=== PATIENT | male | born 1955 | race Caucasian/White ===

== ENCOUNTER → 2024-02-10 08:05 | Outpatient (REF) | payer MEDICARE, BC, SELFPAY ==
[2024-02-10 09:22] LABS: % Basophils 0.3 % (0-2); % Eosinophils 0.1 % (0-6); % Immature Granulocytes 0.3 % (0-0.5); % Lymphocytes 26.5 % (20.5-51.1); % Monocytes 7.8 % (1.7-9.3); Absolute Monocytes 0.6 10^3/uL (0.1-0.6); Hematocrit 45.4 % (39.0-52.0); Hemoglobin 15.1 g/dL (13.0-18.0); Mean Corp Hgb Conc. 33.3 g/dL (33.0-37.0); Mean Corpuscular Hgb 31.9 pg (27.0-31.0); Mean Corpuscular Volume 95.8 fL (80.0-94.0); Mean Platelet Volume 10.9 fL (7.4-10.4); Nucleated Red Blood Cells % 0 % (-); Platelet Count 230 10^3/uL (130-400); Red Blood Cell Count 4.74 10^6/uL (4.70-6.10); Red Cell Dist. Width 14.2 % (11.5-14.5); White Blood Cell Count 7.6 10^3/uL (4.8-10.8)
[2024-02-10 09:55] LABS: ALT (SGPT) 27 U/L (0-50); AST (SGOT) 22 U/L (17-59); Albumin 4.8 g/dl (3.5-5.0); Alkaline Phosphatase 47 U/L (38-126); Blood Urea Nitrogen 25 mg/dl (9-20); Calcium 9.9 mg/dl (8.4-10.2); Carbon Dioxide 24 mmol/L (22-30); Chloride 104 mmol/L (98-107); Glucose 96 mg/dl (70-99); HDL Cholesterol 55 mg/dl; LDL Cholesterol, Calculated 90 mg/dl; Potassium 4.5 mmol/L (3.5-5.1); Sodium 139 mmol/L (135-145); Total Bilirubin 1.1 mg/dl (0.2-1.3); Total Cholesterol 169 mg/dl (50-199); Total Protein 7.5 g/dl (6.3-8.2); Triglyceride 124 mg/dl (10-149); Very Low Density Lipoprotein 24 mg/dl (0-30); eGFR > 60.00
[2024-02-10 10:18] LABS: PSA, Total - Screen 3.63 ng/ml (0.0-4.0)
== END ==
LOC: REG 08:05
PROVIDERS: ATTENDING PHYSICIAN Family Medicine
DX: I10 Essential (primary) hypertension (principal); E78.5 Hyperlipidemia, unspecified; I27.20 Pulmonary hypertension, unspecified; R97.20 Elevated prostate specific antigen [PSA]; Z86.711 Personal history of pulmonary embolism; N40.1 Benign prostatic hyperplasia with lower urinary tract symptoms; Z12.5 Encounter for screening for malignant neoplasm of prostate
CPT/HCPCS: 36415; 80053; 80061; 85025; G0103

== ENCOUNTER 2024-02-11 12:15 | Emergency (ER) | payer MEDICARE, BC, SELFPAY ==
[2024-02-11 12:34] VITALS: BP 150/88
[2024-02-11 13:03] LABS: % Basophils 0.3 % (0-2); % Eosinophils 0.2 % (0-6); % Immature Granulocytes 0.4 % (0-0.5); % Lymphocytes 17.1 % (20.5-51.1); % Monocytes 7.8 % (1.7-9.3); % Neutrophils 74.2 % (42.2-75.2); Absolute Lymphocytes 1.6 10^3/uL (1.2-3.4); Absolute Monocytes 0.7 10^3/uL (0.1-0.6); Absolute Neutrophils 6.8 10^3/uL (1.4-6.5); Hematocrit 43.6 % (39.0-52.0); Mean Corp Hgb Conc. 34.4 g/dL (33.0-37.0); Mean Corpuscular Hgb 32.4 pg (27.0-31.0); Mean Corpuscular Volume 94.2 fL (80.0-94.0); Mean Platelet Volume 10.6 fL (7.4-10.4); Nucleated Red Blood Cells % 0 % (-); Platelet Count 238 10^3/uL (130-400); Red Blood Cell Count 4.63 10^6/uL (4.70-6.10); Red Cell Dist. Width 14.2 % (11.5-14.5); White Blood Cell Count 9.2 10^3/uL (4.8-10.8)
[2024-02-11 13:16] LABS: ALT (SGPT) 28 U/L (0-50); AST (SGOT) 20 U/L (17-59); Albumin 4.6 g/dl (3.5-5.0); Alkaline Phosphatase 50 U/L (38-126); Blood Urea Nitrogen 25 mg/dl (9-20); Calcium 9.4 mg/dl (8.4-10.2); Carbon Dioxide 20 mmol/L (22-30); Chloride 109 mmol/L (98-107); Glucose 109 mg/dl (70-99); Potassium 3.9 mmol/L (3.5-5.1); Sodium 136 mmol/L (135-145); Total Bilirubin 0.7 mg/dl (0.2-1.3); Total Protein 7.4 g/dl (6.3-8.2); eGFR > 60.00
[2024-02-11 13:26] LABS: Troponin I < 0.012 ng/ml
[2024-02-11 14:16] VITALS: BP 136/72
--- NOTE | 2024-02-11 14:53 | ED.GENMED ---
History of Present Illness
General
Chief Complaint: Chest Pain
Source: patient
Exam Limitations: none
Time Seen by Provider: 02/11/24 14:21
Nursing documentation reviewed up to this point in time: agreed with
Travel History
Have you had any contact with someone who has COVID-19?: No
Do you have any symptoms of coronavirus? Fever > 100 degrees, chills, cough, shortness of breath, sore throat, loss of taste or smell, muscle aches, or headache?: No
History of Present Illness
History of Present Illness:
68-year-old male with previous history of PE currently on Eliquis anxiety presenting to the emergency department today with concerns of intermittent chest pain palpitations of the past few weeks also has had some intermittent shortness of breath
seems worse at night during the day is manageable. Denies similar symptoms in the past. Does have a risk lead has yet to see them for the symptoms. Denies nausea vomiting recent illness.
Past History
Past History
ED Past Medical History: HTN, Hypercholesterolemia and Other (History of pulmonary emboli)
ED Past Surgical History: Orthopedic and Other (Hernia repair)
Social History
Tobacco: Former smoker
Alcohol: Occasional
Drug: None
Personal:
Living: with family
Employment: Retired
Family History
Family History: Hypertension and CAD
Review of Systems
Review of Systems
Allergies reviewed?: Yes
All Other Systems: ROS reviewed and negative except as documented in HPI and ROS
Phy Exam
Physical Exam
Physical Exam:
GENERAL: Alert , in no apparent distress
EYE: pupils equal and reactive
NECK: Supple, no significant adenopathy.
ENT: o/p clr, mmm.
CARDIAC: Regular rate and rhythm .
LUNGS: Clear breath sounds bilaterally, no acute respiratory distress, no wheezes/rales/rhonchi
ABDOMEN: Soft, without focal tenderness, no r/g, no cvat
NEUROLOGICAL: Alert and oriented, no focal neuro deficits
SKIN: Warm and dry, skin intact.
MUSCULOSKELETAL: No edema, well perfused.
PSYCH: Normal and appropriate interaction.
Scores
Heart Score for Chest Pain Patients
STEMI patient?: No
History: Slightly or Non-Suspicious
ECG: Normal
Age: >/= 65 years
Risk Factors: >/= 3 Risk Factors or History of CAD
Troponin: </= Normal Limit
Heart Score for Chest Pain Patients: 4
Heart Score Risk: 20.3% MACE over next 6 weeks
Course
Orders/Labs/Results
Orders:
Orders
02/11/24 12:41
EKG [Electrocardiogram (*1)] Urgent
Reason for Study: Shortness of Breath
EKG- Treatment ONCE
02/11/24 12:53
CMP [Comprehensive Metabolic Panel] Urgent
Complete Blood Count/With Diff Urgent
Troponin I Urgent
02/11/24 14:22
Chest [CR Chest - 2 Views ] Urgent
Comment:
Reason For Exam: cp
Abnormal Lab Results
02/11/24
12:53
RBC 4.63 L 10^6/uL
(4.70-6.10)
MCV 94.2 H fL
(80.0-94.0)
MCH 32.4 H pg
(27.0-31.0)
MPV 10.6 H fL
(7.4-10.4)
Absolute Neuts (auto) 6.8 H 10^3/uL
(1.4-6.5)
Absolute Monos (auto) 0.7 H 10^3/uL
(0.1-0.6)
Lymphocytes % 17.1 L %
(20.5-51.1)
Chloride 109 H mmol/L
(98-107)
Carbon Dioxide 20 L mmol/L
(22-30)
BUN 25 H mg/dl
(9-20)
Glucose 109 H mg/dl
(70-99)
02/11/24 12:53
02/11/24 12:53
Vital Signs
Initial and Last Documented VS:
Initial Vital Signs
Temp Pulse Resp BP Pulse Ox
99.2 F 71 16 150/88 97
02/11/24 12:34 02/11/24 12:34 02/11/24 12:34 02/11/24 12:34 02/11/24 12:34
Last Documented Vital Signs
Temp Pulse Resp BP Pulse Ox
99.2 F 57 16 136/72 97
02/11/24 12:34 02/11/24 14:30 02/11/24 14:30 02/11/24 14:16 02/11/24 12:34
MDM/Problems Addressed
MDM/Problems Addressed:
68-year-old male presenting to the emergency department today with concerns of chest discomfort palpitations intermittently over the past 2 weeks denies significant symptoms at this time. Here vital signs are normal patient in no distress labs
obtained and normal EKG without signs of ischemia or arrhythmia. Potentially slightly dehydrated with elevated BUN to creatinine ratio otherwise troponin negative. Patient generally well-appearing no acute distress chest x-ray normal. Patient
appears stable for close outpatient follow-up with cardiology. Return precautions given.
*Critical Care Note
Total Time (30-74mins, 75-104mins- exclusive of procedures): Not Applicable
ED Attending Note
-
Portions of this chart may have been created with voice recognition software.� Occasional wrong word or��sound alike� substitutions may have occurred due to the inherent limitations of voice recognition software.
Discharge Plan
Departure
Patient Disposition: Home (Routine Discharge)
Date of Disposition: 02/11/24
Time of Disposition: 15:40
Patient with high blood pressure during this ER visit?: No
Condition: Good
Covid-19: Not Applicable
Discharge Problem:
Chest pain
Instructions: Chest Pain DCA Follow Up
Prescriptions:
No Action
rosuvastatin 10 MG tablet
10 mg PO QPM
Eliquis 5 MG tablet
5 mg PO BID
epinephrine [EpiPen] 0.3 MG/0.3/SYRINGE auto-injector
0.3 mg IM .STAT PRN (Reason: sob, swelling) Qty: 2 0RF
tamsulosin 0.4 MG capsule
0.4 mg PO DAILY
oxycodone-acetaminophen [Percocet] 5-325 mg tablet
1 tab PO Q6HPRN PRN (Reason: pain) Qty: 8 0RF
methylprednisolone [Medrol (Sam)] 4 mg tablets,dose pack
4 mg PO DIRECTED Qty: 21 0RF
lidocaine [Lidoderm] 5 % adhesive patch,medicated
1 patch topical DAILY Qty: 30 0RF
Referrals:
Dmitriy Villafana MD [Family Provider] -
Activity Restrictions/Additional Instructions:
You came to the emergency department today with concerns of chest discomfort and palpitations. He had a reassuring evaluation. Please follow closely with cardiology. Return to the emergency department for any worsening, new or concerning symptoms.
Interventions
Interventions:
*Risk Screen - Suicide Last Done: 02/11/24 12:34
*Neglect/Abuse Screening Last Done: 02/11/24 12:34
*ED COVID-19 Vaccine History Last Done: 02/11/24 12:34
Discharge Date and Time
Print Language: GRENADIAN
== END 2024-02-11 16:03 | disposition home or self-care (01) ==
LOC: EMR 12:15
PROVIDERS: Emergency Medicine; EMERGENCY PHYSICIAN Emergency Medicine; FAMILY PHYSICIAN Family Medicine
DX: R07.89 Other chest pain (principal); F41.9 Anxiety disorder, unspecified; I10 Essential (primary) hypertension; E78.00 Pure hypercholesterolemia, unspecified; I25.10 Atherosclerotic heart disease of native coronary artery without angina pectoris; Z79.01 Long term (current) use of anticoagulants; Z82.49 Family history of ischemic heart disease and other diseases of the circulatory system; Z86.711 Personal history of pulmonary embolism; Z87.891 Personal history of nicotine dependence
CPT/HCPCS: 99283; 71046; 80053; 84484; 85025; 93005

== ENCOUNTER 2024-02-18 06:08 | Day surgery (SDC) | payer MEDICARE, BC, SELFPAY ==
[2024-02-18] VITALS (11 sets, daily range): BP systolic 122–141; BP diastolic 69–82; BMI 29.7
[2024-02-18] MEDS: ASPIR LOW (ENTERIC COATED) 162 MG PO (07:17)
--- NOTE | 2024-02-18 08:52 | ITS.CL.CATH ---
[facility] - Catheterization
Cardiac Catheterization
Procedure Report:
LEFT HEART CATHETERIZATION
Date of Procedure: February 18, 2024
Referring: Dr. Karly Mullen
PROCEDURES:
1. Left heart catheterization with coronary and single-plane left ventriculography
INDICATION: Recurring chest pain
ACCESS: Right radial artery, 6 Telugu sheath
HEMODYNAMICS : (mmHg)
AO (s/d) : 115/75
LV (s/d) : 124/10
LVEDP : 24
CORONARY FINDINGS
DOMINANCE: Right
LEFT MAIN: Normal
LEFT ANTERIOR DESCENDING: The LAD arises normally from the left main and runs in the anterior interventricular groove. The mid LAD at the origin of the first diagonal branch has a 20% stenosis. The diagonal branch is a moderate size vessel and
arises from the proximal third of the LAD. The remainder of the LAD has only minor irregularities in the distal vessel reaches the apex but does not wrap completely around the apex
CIRCUMFLEX: The circumflex is a small caliber nondominant vessel. OM1 arises very proximally and is a small caliber vessel. The circumflex gives rise to a small OM 2 and terminal OM 3
RIGHT CORONARY ARTERY: The right coronary artery is a large-caliber dominant vessel that is widely patent. The PDA is large. The posterolateral branch is large
VENTRICULOGRAPHY: Left ventriculography was performed in an ANDERSON projection. The digital single-plane left ventricular ejection fraction is estimated at at 65%. Ventriculography was notable for initial catheter associated mitral regurgitation. As
the pigtail was advanced into the left ventricle the mitral regurgitation resolved. I do not believe there is significant mitral regurgitation present.
RADIATION SUMMARY: Fluoro Time (min): 3.2, Dose (mGy): 277.6, DAP (Gy.cm2) : 22.0
Closure Device: TR band
CONCLUSIONS
1. Nonobstructive coronary disease
2. Preserved left ventricular systolic function
RECOMMENDATIONS
1. Continued guideline directed medical therapy and risk modification
Copy to: Dr. Karly Mullen
== END 2024-02-18 12:00 | disposition home or self-care (01) ==
LOC: CATH 06:08
PROVIDERS: ATTENDING PHYSICIAN Internal Medicine Interventional Cardiology; FAMILY PHYSICIAN Family Medicine
DX: I25.10 Atherosclerotic heart disease of native coronary artery without angina pectoris (principal); R07.9 Chest pain, unspecified; I34.0 Nonrheumatic mitral (valve) insufficiency; I10 Essential (primary) hypertension; E78.00 Pure hypercholesterolemia, unspecified; Z79.01 Long term (current) use of anticoagulants; Z86.711 Personal history of pulmonary embolism
CPT/HCPCS: 93458; C1894; Q9967

== ENCOUNTER → 2024-08-11 06:26 | Day surgery (SDC) | payer MEDICARE, BC, SELFPAY | LOC: GI 06:26 | PROVIDERS: ATTENDING PHYSICIAN Surgery; FAMILY PHYSICIAN Family Medicine | DX: Z12.11 Encounter for screening for malignant neoplasm of colon (principal); K57.30 Diverticulosis of large intestine without perforation or abscess without bleeding; K64.8 Other hemorrhoids; D12.2 Benign neoplasm of ascending colon; D12.5 Benign neoplasm of sigmoid colon | CPT/HCPCS: 45385; 88305 ==

== ENCOUNTER → 2025-08-20 14:06 | Outpatient (REF) | payer MEDICARE, BC, SELFPAY ==
[2025-08-20 18:23] LABS: PSA, Total - Screen 5.03 ng/ml (0.0-4.0)
== END ==
LOC: REG 14:06
PROVIDERS: ATTENDING PHYSICIAN Specialist; FAMILY PHYSICIAN Family Medicine
DX: Z12.5 Encounter for screening for malignant neoplasm of prostate (principal)
CPT/HCPCS: 36415; G0103

== ENCOUNTER → 2025-09-28 20:00 | Outpatient (REF) | payer MEDICARE, BC, SELFPAY | LOC: MRI 3T 20:00 | PROVIDERS: ATTENDING PHYSICIAN Specialist; FAMILY PHYSICIAN Family Medicine | DX: R97.20 Elevated prostate specific antigen [PSA] (principal) | CPT/HCPCS: 72197; A9575 ==

== ENCOUNTER 2025-09-29 02:56 | Emergency (ER) | payer MEDICARE, BC, SELFPAY ==
[2025-09-29] VITALS (9 sets, daily range): BP systolic 132–168; BP diastolic 76–101; BMI 31.9
[2025-09-29 04:20] LABS: Hematocrit 42.5 % (39.0-52.0); Hemoglobin 14.7 g/dL (13.0-18.0); Mean Corp Hgb Conc. 34.6 g/dL (33.0-37.0); Mean Corpuscular Volume 94.0 fL (80.0-94.0); Nucleated Red Blood Cells % 0 % (-); Platelet Count 194 10^3/uL (130-400); Red Cell Dist. Width 14.4 % (11.5-14.5)
[2025-09-29 04:29] LABS: ALT (SGPT) 28 U/L (0-50); AST (SGOT) 26 U/L (17-59); Albumin 4.5 g/dl (3.5-5.0); Alkaline Phosphatase 48 U/L (38-126); Blood Urea Nitrogen 14 mg/dl (9-20); Calcium 9.1 mg/dl (8.4-10.2); Carbon Dioxide 24 mmol/L (22-30); Chloride 109 mmol/L (98-107); Estimated Creatinine Clearance 102 ml/min; Glucose 103 mg/dl (70-99); Potassium 3.6 mmol/L (3.5-5.1); Sodium 139 mmol/L (135-145); Total Protein 7.2 g/dl (6.3-8.2); eGFR > 60.00
[2025-09-29 04:41] LABS: Troponin I < 0.012 ng/ml
--- NOTE | 2025-09-29 06:46 | ED.GENMED ---
History of Present Illness
General
Chief Complaint: Chest Pain
Source: patient
Exam Limitations: none
Time Seen by Provider: 09/29/25 03:15
Nursing documentation reviewed up to this point in time: agreed with
History of Present Illness
History of Present Illness:
Note:
CHIEF COMPLAINT(S)
Chest pain.
HISTORY OF PRESENT ILLNESS
The patient is a 69-year-old male who presents with chest pain that began on Saturday evening, approximately 36 hours prior to this encounter. The pain persisted through the night but improved by the following morning. The patient reports that the
chest pain was accompanied by episodes of his heart racing, described as 'my heart just started freezing and did not shut down,' which he initially attributed to anxiety. He expressed that he has experienced a rough summer, notably after the recent
loss of his spouse to stage 4 cancer. Due to his recent bereavement and the nature of his symptoms, he decided to seek medical evaluation.
The patient denies having any previous history of cardiac illness aside from hypertension, for which he takes two medications. He sees a orchardist, Dr. Manning, primarily for blood pressure management and past anxiety issues that elevated his
heart rate. He has a family history of heart disease, with his father having suffered a heart attack at the age of 60. The patient denies any new symptoms suggestive of a thromboembolic event, despite a personal history of pulmonary embolism
following surgeries.
PAST MEDICAL AND SURGICAL HISTORY
1. Hypertension.
2. Past pulmonary embolisms post-surgery.
FAMILY HISTORY
Father had a myocardial infarction at 60 years of age.
SOCIAL HISTORY
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 He experienced significant stress due to the recent of his spouse, who had been diagnosed with stage 4 cancer.
MEDICATIONS
The patient mentions taking four or five medications, including two antihypertensives.
PHYSICAL EXAM
General: Alert, no acute distress.
Skin: Warm, dry.
Head: Normocephalic, atraumatic.
Neck: Supple, trachea midline.
Eye Ears, nose, mouth and throat: Oral mucosa moist.
Cardiovascular: Normal peripheral perfusion, No edema.
Respiratory: Respirations are non-labored.
Gastrointestinal : Abdomen nondistended
Back: Normal range of motion, Normal alignment.
Musculoskeletal: Normal ROM, normal strength.
Neurological: Alert and oriented to person, place, time, and situation, No focal neurological deficit observed.
Psychiatric: Cooperative, appropriate mood & affect.
PLAN
1. Diagnostic testing to evaluate cardiac function and rule out myocardial infarction or other acute cardiac events.
2. Consider psychological support or counseling resources to address the patients recent loss and grief if he later chooses to seek help.
3. Monitor and manage hypertension, possibly reviewing current medication regimen in coordination with the patients orchardist.
DIFFERENTIAL DIAGNOSIS
The Differential Diagnosis includes, in no particular order and is not limited to:
1. Acute coronary syndrome.
2. Angina pectoris.
3. Atrial fibrillation or other arrhythmias.
4. Anxiety-related chest pain.
5. Gastroesophageal reflux disease.
6. Costochondritis.
7. Musculoskeletal pain.
8. Pericarditis.
9. Heart failure exacerbation.
10. Pulmonary embolism recurrence.
Disposition:
SUMMARY OF ENCOUNTER
The patient is a 69-year-old male presenting with chest pain, persisting since Saturday evening but subsequently improving by the following morning. Initial management in the emergency department included a negative troponin test and a normal EKG. A
chest x-ray was interpreted as normal. Given his recent emotional stress related to the loss of his spouse, the patients anxiety was acknowledged. The plan included observing the patient with a repeat troponin test ordered for further assessment of
potential cardiac issues.
PLAN
1. Continue to monitor the patient and repeat troponin to assess for cardiac injury.
2. Provide reassurance and consider the patients emotional state, possibly offering supportive counseling resources.
MEDICAL DECISION MAKING
-Chronic conditions affecting care: Hypertension, Past pulmonary embolisms, Recent bereavement. Differential diagnosis consideration includes: Acute coronary syndrome, Angina pectoris, Atrial fibrillation or other arrhythmias, Anxiety-related chest
pain, Gastroesophageal reflux disease, Costochondritis, Musculoskeletal pain, Pericarditis, Heart failure exacerbation, Pulmonary embolism recurrence.
-Data:
Category 1:
- My independent interpretation of the EKG indicates normal findings.
- My independent review of the first troponin test indicates a negative result.
- My independent interpretation of the chest x-ray is normal findings.
-Risk:
Care significantly affected by Social Determinants of Health: The loss of his spouse has likely caused increased anxiety, impacting his stress levels and potentially exacerbating his hypertension.
Past History
Past History
ED Past Medical History: HTN, Hypercholesterolemia and Other (History of pulmonary emboli)
ED Past Surgical History: Orthopedic and Other (Hernia repair)
Social History
Tobacco: Former smoker
Alcohol: Occasional
Drug: None
Personal:
Living: with family
Employment: Retired
Family History
Family History: Hypertension and CAD
Phy Exam
Physical Exam
Physical Exam:
.
Scores
Heart Score for Chest Pain Patients
STEMI patient?: No
History: Slightly or Non-Suspicious
ECG: Normal
Age: >/= 65 years
Risk Factors: >/= 3 Risk Factors or History of CAD
Troponin: </= Normal Limit
Heart Score for Chest Pain Patients: 4
Heart Score Risk: 20.3% MACE over next 6 weeks
Course
Orders/Labs/Results
Orders:
Orders
09/29/25 02:57
Electrocardiogram (*1) Urgent
Reason for Study: Other
Other Reason for Exam: Respiratory Distress
Cardiac Monitoring- Treatment ONCE
EKG- Treatment ONCE
IV Insert/Care/Rem.- Treatment PRN
CR Chest - 2 Views Urgent
Comment:
Reason For Exam: respiratory distress
O2 Therapy [RESP] Urgent
Titrate/Wean O2 to maintain O2 sat greater than (%): 93
Special Instructions: TO MAINTAIN CONTINUOUS O2 SATS >/= 93%
Pulse Ox/cont/shift [RESP] Urgent
Quantity: 1
Special Instructions: continuous pulse ox
09/29/25 03:59
Complete Blood Count/With Diff Urgent
Comprehensive Metabolic Panel Urgent
NT-proBNP Urgent
Troponin I Urgent
09/29/25 06:41
EKG- Treatment ONCE
09/29/25 07:09
D-Dimer Urgent
09/29/25 08:55
Troponin I Urgent
09/29/25 09:00
Electrocardiogram (*1) Urgent
Reason for Study: Chest Pain
Abnormal Lab Results
09/29/25
03:59
RBC 4.52 L 10^6/uL
(4.70-6.10)
MCH 32.5 H pg
(27.0-31.0)
MPV 10.9 H fL
(7.4-10.4)
Chloride 109 H mmol/L
(98-107)
Glucose 103 H mg/dl
(70-99)
09/29/25 03:59
09/29/25 03:59
Vital Signs
Initial and Last Documented VS:
Initial Vital Signs
Temp Pulse Resp BP Pulse Ox
97.8 F 62 20 168/87 97
09/29/25 03:05 09/29/25 03:05 09/29/25 03:05 09/29/25 03:05 09/29/25 03:05
Last Documented Vital Signs
Temp Pulse Resp BP Pulse Ox
97.8 F 59 19 138/87 96
09/29/25 03:05 09/29/25 09:00 09/29/25 09:00 09/29/25 09:00 09/29/25 09:00
*Radiology
Radiology exam reviewed: all reviewed NAD by ED Provider
*Pulse Oximetry
SaO2: 96
Oxygen Mode of Delivery: Room air
Patient hypoxic: no
*EKG
Interpreted by ED Provider?: Yes
EKG Intrepretation Time: 03:00
Interpretation: normal
Comparison EKG: no changes (02/11/24)
Heart Rate: 67
Rate: normal
Rhythm: sinus
[place]: normal axis and left axis deviation
Interval: normal interval
QRS Pattern: normal QRS
Ischemia: no ischemia
*Critical Care Note
Total Time (30-74mins, 75-104mins- exclusive of procedures): Not Applicable
Update Note
Update Note:
Patient signed out at 7 AM. Pending D-dimer now and repeat troponin and EKG at 9am.
ED Attending Note
-
Portions of this chart may have been created with voice recognition software.� Occasional wrong word or��sound alike� substitutions may have occurred due to the inherent limitations of voice recognition software.
Discharge Plan
Departure
Patient Disposition: Home (Routine Discharge)
Date of Disposition: 09/29/25
Time of Disposition: 09:34
Patient with high blood pressure during this ER visit?: No
Condition: Good
Discharge Problem:
Chest pain, Anxiety
Instructions: Chest Pain CBC Follow Up
Prescriptions:
No Action
rosuvastatin 10 MG tablet
40 mg PO QPM
Eliquis 5 MG tablet
5 mg PO BID
tamsulosin 0.4 MG capsule
0.4 mg PO QPM
valsartan 320 mg Tablet
320 mg PO DAILY
buspirone 15 mg Tablet
15 mg PO DAILY
epinephrine [EpiPen] 0.3 mg/0.3 mL Auto-Injector
0.3 mg IM ONCE PRN (Reason: SOB/Swelling)
buspirone 15 mg Tablet
30 mg PO QPM
Referrals:
Dmitriy Villafana MD [Family Provider, Family Practice]
Activity Restrictions/Additional Instructions:
Thank You for choosing [facility] [address].
It was a pleasure meeting you and taking part in your care. We hope for your continued healing and wellness.
Please read discharge instructions in their entirety. However, they are for general education and may not describe your exact diagnosis at discharge. Information on your ER visit and medical conditions were discussed with you along with appropriate
follow up information...
If indicated, please take your medications as instructed and indicated on discharge paperwork.
Please schedule a follow up appointment as directed. Call to schedule an appointment
Please return to the emergency department with ANY change in, persisting, or worsening of symptoms. If any of your symptoms do not improve, or persist, or become more severe within 6-12 hours, please return to the emergency department for further
care.
Please return to the emergency department if you develop a headache, neck pain/stiffness, fever greater than 100.4F, chest pain, shortness of breath, persistent nausea, vomiting, slurred speech, difficulty walking, numbness/tingling, weakness, signs
of infection or any other symptoms that are worrisome to you.
If you have any questions or concerns please do not hesitate to call the Hospital at .
Interventions
Interventions:
*Risk Screen - Suicide Last Done: 09/29/25 03:05
*General Assessment Last Done: 09/29/25 03:05
*Neglect/Abuse Screening Last Done: 09/29/25 03:05
*ED- Fall Risk Assessment Last Done: 09/29/25 03:05
*ED COVID-19 Vaccine History Last Done: 09/29/25 03:05
*ED Influenza Vaccine History Last Done: 09/29/25 03:05
ED- Cardiac Assessment Last Done: 09/29/25 07:55
Discharge Date and Time
Print Language: KINYARWANDA
[2025-09-29 08:01] LABS: D-Dimer < 0.27 ug/mlFEU (0.00-0.50)
[2025-09-29 09:27] LABS: Troponin I < 0.012 ng/ml
== END 2025-09-29 09:40 | disposition home or self-care (01) ==
LOC: EMR 02:56
PROVIDERS: EMERGENCY PHYSICIAN Student in an Organized Health Care Education/Training Program; FAMILY PHYSICIAN Family Medicine
DX: R07.9 Chest pain, unspecified (principal); F41.9 Anxiety disorder, unspecified; E78.00 Pure hypercholesterolemia, unspecified; I10 Essential (primary) hypertension; Z86.711 Personal history of pulmonary embolism; Z87.891 Personal history of nicotine dependence; Z63.4 Disappearance and death of family member
CPT/HCPCS: 99285; 71046; 80053; 83880; 84484; 85025; 85379; 93005

== ENCOUNTER → 2025-10-22 11:03 | Outpatient (REF) | payer MEDICARE, BC, SELFPAY | LOC: CLAB 11:03 | PROVIDERS: ATTENDING PHYSICIAN Specialist | DX: R97.20 Elevated prostate specific antigen [PSA] (principal) | CPT/HCPCS: 88305 ==